=== PATIENT | male | born 1980 | race Caucasian/White ===

== ENCOUNTER 2018-01-16 12:41 | Emergency (ER) | payer MEDICAID ==
[~2018-01-16] VITALS: Ht 172.7 cm; Wt 98.0 kg
[2018-01-16 12:48] VITALS: Ht 172.7 cm; Wt 98.0 kg
[2018-01-16 14:49] VITALS: BP 130/85
== END 2018-01-16 14:49 | disposition home or self-care (01) ==
LOC: ED 12:41
DX: J30.9 Allergic rhinitis, unspecified (principal)
CPT/HCPCS: J1100; J7620

== ENCOUNTER 2018-10-11 12:15 | Emergency (ER) | payer MEDICAID ==
[~2018-10-11] VITALS: Ht 172.7 cm; Wt 97.1 kg
[2018-10-11 12:40] VITALS: BP 134/99; Ht 172.7 cm; Wt 97.1 kg
== END 2018-10-11 14:36 | disposition home or self-care (01) ==
LOC: ED 12:15
DX: J30.9 Allergic rhinitis, unspecified (principal); F17.210 Nicotine dependence, cigarettes, uncomplicated
CPT/HCPCS: 99406